=== PATIENT | female | born 1970 ===

== ENCOUNTER 2024-03-05 16:02 | Emergency (ER) | payer SELFPAY ==
[2024-03-05 16:10] VITALS: BP 143/82
[2024-03-05 17:01] VITALS: BMI 26.2
--- NOTE | 2024-03-05 17:22 | ED.GENMED ---
History of Present Illness
General
Chief Complaint: Musculo-Skeletal Complaint
Time Seen by Provider: 03/05/24 16:39
Travel History
Have you had any contact with someone who has COVID-19?: No
Do you have any symptoms of coronavirus? Fever > 100 degrees, chills, cough, shortness of breath, sore throat, loss of taste or smell, muscle aches, or headache?: No
History of Present Illness
History of Present Illness:
53-year-old female presents the emergency department for evaluation of right thigh pain developing acutely while kicking a ball during a kickball game at school today. She is able to bear weight but feels as though any attempts to bend the knee or
flex the hip causes severe pain. Denies any falls or direct blow to the thigh. Denies any bruising, does not take anticoagulant
Review of Systems
Review of Systems
Allergies reviewed?: Yes
All Other Systems: ROS reviewed and negative except as documented in HPI and ROS
Phy Exam
Physical Exam
Physical Exam:
GEN: Well appearing, NAD, WDWN
HEENT: Oral mucosa moist, no scleral icterus
Cardiac: Regular rate
Lung: No respiratory distress, no tachypnea
MSK: No gross deformity or injuries. Tenderness to the proximal R thigh, no gross deformity. Hip flexion/knee extension intact, SLR intact without patellar deformity
Skin: Good color, no pallor or jaundice, no rashes
Neuro: AO x3, moves all extremities freely
Psych: Calm, cooperative
Course
Orders/Labs/Results
Orders:
Orders
03/05/24 17:23
Ketorolac [Toradol] 30 mg IM NOW STA
Vital Signs
Initial and Last Documented VS:
Initial Vital Signs
Temp Pulse Resp BP Pulse Ox
97.7 F 75 17 143/82 100
03/05/24 16:10 03/05/24 16:10 03/05/24 16:10 03/05/24 16:10 03/05/24 16:10
Last Documented Vital Signs
Temp Pulse Resp BP Pulse Ox
97.7 F 75 17 143/82 100
03/05/24 16:10 03/05/24 16:10 03/05/24 16:10 03/05/24 16:10 03/05/24 16:10
MDM/Problems Addressed
MDM/Problems Addressed:
No e/o patellar/quad tendon rupture. No indication for imaging. Discussed supportive care
*Critical Care Note
Total Time (30-74mins, 75-104mins- exclusive of procedures): Not Applicable
ED Attending Note
-
Portions of this chart may have been created with voice recognition software.� Occasional wrong word or��sound alike� substitutions may have occurred due to the inherent limitations of voice recognition software.
Discharge Plan
Departure
Patient Disposition: Home (Routine Discharge)
Date of Disposition: 03/05/24
Time of Disposition: 17:22
Patient with high blood pressure during this ER visit?: No
Discharge Problem:
Strain of flexor muscle of right hip
Instructions: Lower Extremity Muscle Strain (DC)
Prescriptions:
No Action
methenamine hippurate [Urex (methenamine)] 1 gram Tablet
1 g PO BID
Referrals:
Marlys Saba PA [Family Provider] -
Activity Restrictions/Additional Instructions:
ibuprofen 600mg every 6-8 hours
Ice and elevate often
Gently stretch the quad muscle in 3-5 days if pain allows
Interventions
Interventions:
*Risk Screen - Suicide Last Done: 03/05/24 17:01
*General Assessment Last Done: 03/05/24 17:01
*Neglect/Abuse Screening Last Done: 03/05/24 17:01
ED- Fall Risk Assessment Last Done: 03/05/24 17:01
*ED COVID-19 Vaccine History Last Done: 03/05/24 17:01
*Nursing Disposition Last Done: 03/05/24 17:39
ED-Musculoskeletal Assessment Last Done: 03/05/24 17:01
Discharge Date and Time
Discharge Date/Time: 03/05/24 17:40
Print Language: SERBIAN
[2024-03-05] MEDS: TORADOL 30 MG IM (17:38)
== END 2024-03-05 17:40 | disposition home or self-care (01) ==
LOC: EMR 16:02
PROVIDERS: EMERGENCY PHYSICIAN Emergency Medicine; FAMILY PHYSICIAN Nurse Practitioner Adult Health
DX: S76.011A Strain of muscle, fascia and tendon of right hip, initial encounter (principal); X50.1XXA Overexertion from prolonged static or awkward postures, initial encounter
CPT/HCPCS: 99284; 96372